=== PATIENT | male | born 1965 | race Caucasian/White ===

== ENCOUNTER 2018-05-01 09:29 | Day surgery (SDC) | payer BC ==
[~2018-05-01] VITALS: Ht 175.3 cm; Wt 79.5 kg
--- NOTE | ~2018-05-01 | HP ---
PATIENT: SUMI ROSAS MEDICAL RECORD: [id number] ACCOUNT: [id number] LOCATION:[facility] : 67 ADMISSION DATE: 05/01/18 PCP: JUAN GRACIA DO HISTORY AND PHYSICAL EXAMINATION HISTORY: The patient has a typed history and physical in the chart. His primary care physician is Dr. Gracia. He has had no hematochezia, no melena. No change in his stool habits. No abdominal pain. No family history of colon cancer. HOME MEDICATIONS: Please see the nursing list. PHYSICAL EXAMINATION: GENERAL: The patient does not appear acutely ill. He does not appear chronically ill. VITAL SIGNS: Reviewed. EARS: External ears appear normal. EYES: Extraocular movements are intact. NECK: Trachea is midline. CHEST: No intercostal retractions. PULMONARY: Nonlabored. IMPRESSION: Desires screening colonoscopy. PLAN: Screening colonoscopy. TRANSINT:[id number] Voice Confirmation ID: [id number] DOCUMENT ID: [id number] LEFTY ADKINS MD at 1544 CC: [id number] DICTATION DATE: 05/01/18 1226 ENGINEERING CLERK: 05/01/18 1324 [facility] 05/01/18 [facility] [address] [place] [address]
--- NOTE | ~2018-05-01 | OP ---
PATIENT NAME: SUMI ROSAS MEDICAL RECORD: [id number] :67 LOCATION:D.OPS ADMISSION DATE: SURGEON: QUANG ADKINS MD DATE OF OPERATION: 05/01/2018 PREOPERATIVE DIAGNOSIS: Desires screening colonoscopy. POSTOPERATIVE DIAGNOSIS: Desires screening colonoscopy with 2 colon polyps, both sessile, both measuring less than 9 mm in diameter. PROCEDURES: 1. Total colonoscopy to cecum. 2. Hot biopsy forceps polypectomies times 2. SURGEON: Quang Adkins MD SLITTER AND CUTTER OPERATOR: None. BLOOD LOSS: Minimal. ANESTHESIA: IV sedation. COMPLICATIONS: None. The risks, possible complications, and alternatives to the procedure were explained to the patient. He elects to proceed. ENDOSCOPIC COURSE: The patient was conveyed to the endoscopy suite electively on 05/01/2018. IV sedation was induced by the anesthesia staff. The patient was placed in the Lamb position. A digital rectal examination was performed. A colonoscope was inserted through the anus. It was easily advanced to the cecum. The prep was marginal. I slowly withdrew the endoscope. I irrigated and aspirated extensively. I dragged the folds. A combination of normal imaging and narrow band imaging were utilized. Two polyps were noted. These were both on a fold. Each was removed in their entireties utilizing the hot biopsy forceps polypectomy technique. A retroflexed view was obtained in the rectum. The pullback was greater than an 18-minute pullback. I then unretroflexed the scope and removed it under direct vision. I will plan to see the patient in my office in 2-3 weeks. If either one of the polyps is adenomatous, then I would recommend a repeat colonoscopy in a year and then surveillance colonoscopies every 3 years. TRANSINT:[id number] Voice Confirmation ID: [id number] DOCUMENT ID: [id number] OPERATIVE REPORT [id number] SUMI ROSAS QUANG ADKINS MD at 1544 CC: JUAN STEELE DO [id number] DICTATION DATE: 05/01/18 1300 WILDLIFE MANAGER: 05/01/18 1434 [facility] 05/01/18 [place] [address]
[2018-05-01 10:00] LABS: HEMATOCRIT 42.3 % (42.0-54.0); HEMOGLOBIN 14.7 g/dL (13.5-17.5); MCHC 34.8 g/dL (31.0-37.0); MCV 94.8 fL (80.0-100.0); MEAN PLATELET VOLUME 9.1 fL (7.4-10.4); RBC 4.46 10x6/uL (4.20-6.10); WBC 4.8 10x3/uL (4.8-10.8)
[2018-05-01] MEDS ORDERED: LIPITOR40 MG PO (10:38)
[2018-05-01] MEDS ORDERED: GLUCOPHAGE1000 MG PO (10:38)
[2018-05-01] MEDS ORDERED: PRINIVIL20 MG PO (10:39)
[2018-05-01] MEDS ORDERED: NORVASC10 MG PO (10:40)
[2018-05-01] MEDS ORDERED: FARXIGA10 MG PO (10:41)
[2018-05-01] MEDS ORDERED: BAYER CHEWABLE81 MG PO (10:42)
[2018-05-01 10:48] VITALS: BP 148/84; Ht 175.3 cm; Wt 79.5 kg
== END 2018-05-01 13:53 | disposition home or self-care (01) ==
LOC: D.OPS 09:29
PROVIDERS: Anesthesiology
DX: Z12.11 Encounter for screening for malignant neoplasm of colon (principal); D12.2 Benign neoplasm of ascending colon; D12.4 Benign neoplasm of descending colon; Z01.812 Encounter for preprocedural laboratory examination